=== PATIENT | male | born 1955 | race Caucasian/White ===

== ENCOUNTER 2018-02-14 13:42 | Emergency (ER) | payer OTHER ==
[2018-02-14] MEDS ORDERED: LIDOCAINE 1% INJ-PF (10 MG/ML) 30 ML SDV INJ ONE (14:10)
--- NOTE | 2018-02-14 14:10 | ER Document Report ---
ED Wound - General Chief Complaint: Puncture Wound Stated Complaint: NAIL PUNCTURE TO LEFT ARM Time Seen by Provider: 02/14/18 14:09 Notes: This is a pleasant 62-year-old male to the emergency department for evaluation of nail injury. Patient was working on a roof with a nail gun. It hit his arm and the nail went in to the left arm. Patient was able to remove it. He was bleeding at the time so decided to come in and get it checked out. Denies any other injuries at this time. Bleeding is controlled. No numbness, loss of function or sensation in the arm or fingers. TRAVEL OUTSIDE OF THE [place] IN LAST 30 DAYS: No - HPI Patient complains to provider of: Laceration, Puncture wound Occurred: Just prior to arrival Onset/Duration: Sudden - Related Data Allergies/Adverse Reactions: No Known Allergies Allergy (Verified 02/14/18 14:07) Past Medical History - General Information source: Patient - Social History Smoking Status: Never Smoker Chew tobacco use (# tins/day): No Frequency of alcohol use: None Drug Abuse: None Lives with: Spouse/Significant other Family History: Reviewed & Not Pertinent Patient has suicidal ideation: No Patient has homicidal ideation: No - Past Medical History Cardiac Medical History: Reports: Hx Hypertension Renal/ Medical History: Denies: Hx Peritoneal Dialysis Past Surgical History: Reports: Hx Abdominal Surgery - angi ingineal hernia repair, Hx Nose Surgery - sinus surgery Review of Systems - Review of Systems Constitutional: denies: Fever, Malaise, Weakness EENT: denies: Blurred vision, Double vision, Difficulty swallowing Cardiovascular: denies: Chest pain, Palpitations, Heart racing Respiratory: denies: Cough, Short of breath, Wheezing Gastrointestinal: denies: Abdominal pain, Diarrhea, Nausea Musculoskeletal: See HPI, Other - Actual wound to the left wrist/forearm area Skin: Other - Puncture wound to the left wrist/forearm area Neurological/Psychological: denies: Paralysis, Tingling, Tremor Physical Exam - Vital signs Vitals: Temp Pulse Resp BP Pulse Ox 97.7 F 95 16 146/70 H 97 02/14/18 13:48 02/14/18 13:48 02/14/18 13:48 02/14/18 13:48 02/14/18 13:48 Interpretation: Normal - Respiratory Respiratory status: No respiratory distress Chest status: Nontender Breath sounds: Normal Chest palpation: Normal - Cardiovascular Rhythm: Regular Heart sounds: Normal auscultation Murmur: No - Abdominal Inspection: Normal Distension: No distension Bowel sounds: Normal Tenderness: Nontender Organomegaly: No organomegaly - Extremities General upper extremity: Nontender, Normal ROM, Normal strength, Normal temperature, Other - Neurovascularly intact. Full range of motion of the fingers. Tendons intact. There is a 2 mm puncture wound on the radial aspect of the distal forearm/proximal wrist. No active bleeding. - Neurological Neuro grossly intact: Yes Cognition: Normal Orientation: AAOx4 [place] Com[place] Scale Eye Opening: Spontaneous [place] Coma Scale Verbal: Oriented [place] Com[place] Scale Motor: Obeys Commands [place] Coma Scale Total: 15 Speech: Normal Motor strength normal: LUE, RUE, LLE, RLE Sensory: Normal - Skin Skin Temperature: Warm Skin Moisture: Dry Skin Color: Normal, Other - 2 mm puncture wound in the left distal forearm/ proximal wrist area. Course - Re-evaluation Re-evalutation: 02/14/18 16:37 Procedure note: After consent was obtained the area was prepped with Betadine. Approximately 5 cc of 1% lidocaine without epinephrine was injected into the puncture wound. After proper anesthesia was obtained the wound was explored. Unable to locate the foreign bodies which were seen on x-ray. The wound was irrigated with 1 L of normal saline. 1 4-0 Prolene suture was placed loosely. The wound was bandaged. Recheck of radial and ulnar pulses present and neurovascularly intact. No complications. No blood loss. Patient tolerated procedure well. 02/14/18 16:38 02/14/18 16:38 Wrist X-Ray 02/14/18 14:09 IMPRESSION: Metallic foreign body in the soft tissues. Unable to locate the foreign bodies. Patient unlikely needs to worry about this however I did give him follow-up information for Dr. Walsh as well as orthopedics. Review of the literature does not recommend empiric antibiotics at this time. I have given the patient strict warning signs with regards to the foreign body in soft tissue injury. Patient is of sound mind and good judgment. Will DC at this time. Return if needed. - Vital Signs Vital signs: Temp Pulse Resp BP Pulse Ox 97.7 F 77 16 129/66 H 97 02/14/18 15:30 02/14/18 15:30 02/14/18 15:30 02/14/18 15:30 02/14/18 15:30 Discharge - Discharge Clinical Impression: Puncture wound of left wrist Qualifiers: Encounter type: initial encounter Qualified Code(s): S61.532A - Puncture wound without foreign body of left wrist, initial encounter Foreign body in left upper extremity Qualifiers: Encounter type: initial encounter Qualified Code(s): S40.852A - Superficial foreign body of left upper arm, initial encounter Condition: Good Disposition: HOME, SELF-CARE Instructions: Foreign Body ([facility]), Laceration Care ([facility]), Puncture Wound ([facility]) Additional Instructions: Return immediately for any severe pain, swelling that is getting worse, redness or signs of infection. Follow-up with orthopedic surgery or general surgeon to discuss the retained foreign bodies in the arm. Referrals: DESMOND WALSH MD [ACTIVE STAFF] - Follow up as needed GRACE ZHANG DO [ACTIVE STAFF] - Follow up as needed
--- NOTE | 2018-02-14 14:29 | RADIOLOGY REPORT (SQ) ---
EXAM DESCRIPTION: WRIST LEFT 2 VIEWS COMPLETED DATE/TIME: 02/14/2018 2:21 pm REASON FOR STUDY: nail gun to wrist COMPARISON: None. NUMBER OF VIEWS: Three views. TECHNIQUE: AP, lateral, and oblique radiographic images acquired of the left wrist. LIMITATIONS: None. FINDINGS: MINERALIZATION: Normal. BONES: No acute fracture or dislocation. No worrisome bone lesions. Normal alignment. SOFT TISSUES: Metallic foreign body along the ventral surface of the 4 arm lateral aspect OTHER: No other significant finding. IMPRESSION: Metallic foreign body in the soft tissues. TECHNICAL DOCUMENTATION: JOB ID: [id number] [email or web address]- All Rights Reserved Reading location - IP/workstation name: [email or web address]
[2018-02-14 15:31] VITALS: BP 129/66
== END 2018-02-14 15:40 | disposition home or self-care (01) ==
LOC: ER 13:42
DX: S61.532A Puncture wound without foreign body of left wrist, initial encounter (principal); S40.852A Superficial foreign body of left upper arm, initial encounter; W29.4XXA Contact with nail gun, initial encounter; I10 Essential (primary) hypertension
CPT/HCPCS: 99283; 73100; 12001; J3490

== ENCOUNTER → 2019-12-13 | Outpatient (CLI) | payer MEDICARE, OTHER ==
--- NOTE | 2019-12-14 13:42 | RADIOLOGY REPORT (SQ) ---
EXAM DESCRIPTION: U/S THYROID/SFT TISS HD NECK IMAGES COMPLETED DATE/TIME: 12/13/2019 5:08 pm REASON FOR STUDY: R09.89 OTH SYMPTOMS AND SIGNS INVOLVING THE CIRC AND RESP SYSTEMS R06.89 OTHER AB NORMALITIES OF BREATHING R09.89 OTH SYMPTOMS AND SIGNS INVOLVING THE CIRC AND RESP SY COMPARISON: None. TECHNIQUE: Dynamic and static liang-scale images acquired of the thyroid gland. Selected additional c olor/power Doppler images recorded. All images stored to PACS. LIMITATIONS: None. FINDINGS: RIGHT LOBE: Normal size. Homogeneous echotexture. No cystic or solid masses. LEFT LOBE: Normal size. Homogeneous echotexture. No cystic or solid masses. ISTHMUS: Normal size. Homogeneous echotexture. No cystic or solid masses. OTHER: No other significant finding. IMPRESSION: NORMAL THYROID ULTRASOUND. TECHNICAL DOCUMENTATION: JOB ID: [id number] [email or web address]- All Rights Reserved Reading location - IP/workstation name: [email or web address]
== END ==
LOC: RAD 16:30
PROVIDERS: ATTEND Otolaryngology
DX: R09.89 Other specified symptoms and signs involving the circulatory and respiratory systems (principal)
CPT/HCPCS: 76536